=== PATIENT | female | born 1935 | race Two or more races ===

== ENCOUNTER 2023-03-24 14:57 | Inpatient (IN) | payer MEDICARE, OTHER ==
[~2023-03-24] VITALS: Ht 157.5 cm; Wt 46.4 kg
[2023-03-24] MEDS ORDERED: NITROGLYCERIN 0.4 MG SL TAB SL ONE (15:15)
[2023-03-24 16:05] LABS: Basophils # (auto) 0.1 10 ^3/uL (0-0.2); Basophils % (auto) 0.7 % (0.0-2.0); Eosinophils # (auto) 0.1 10 ^3/uL (0-0.8); Eosinophils % (auto) 0.6 % (0.0-7.0); Hemoglobin 11.9 g/dL (12.2-16.2); Lymphocytes # (auto) 1.1 10 ^3/uL (0.4-5.4); Lymphocytes % (auto) 10.5 % (10.0-50.0); Mean Corpuscular Hgb Conc. 34.1 g/dL (32.0-36.0); Mean Corpuscular Volume 90.9 fL (80.0-100.0); Monocytes # (auto) 1.2 10 ^3/uL (0-1.3); Monocytes % (auto) 11.9 % (0.0-12.0); Neutrophils # (auto) 7.7 10 ^3/uL (1.6-8.6); Neutrophils % (auto) 76.3 % (37.0-80.0); Red Blood Cells 3.85 10^6/uL (4.0-5.20); Red Cell Distribution Width 13.2 % (11.8-14.3); White Blood Cell 10.1 10^3/uL (4.4-10.8)
[2023-03-24 16:19] LABS: Alanine Aminotransferase 14 U/L (7-40); Albumin 4.4 g/dL (3.2-4.8); Alkaline Phosphatase 92 U/L (46-116); Anion Gap 6 (5-15); Aspartate Aminotransferase 30 U/L (13-40); BUN/Creatinine Ratio 11.4 (10.0-20.0); Blood Urea Nitrogen 10 mg/dL (9-23); Calcium 9.4 mg/dL (8.5-10.1); Carbon Dioxide 31 mmol/L (20-30); Chloride 94 mmol/L (98-107); Glucose 134 mg/dL (74-106); Potassium 3.4 mmol/L (3.5-5.1); Sodium 131 mmol/L (136-145)
[2023-03-24 16:20] LABS: Bilirubin, Total 0.7 mg/dL (0.2-1.0); Total Protein 7.2 g/dL (5.7-8.2)
[2023-03-24 20:15] VITALS: PULSE 80; RESP 16; O2SAT 96
[2023-03-24 21:58] LABS: Urine Epithelial Cast None Seen /hpf (<5)
[2023-03-24 22:11] LABS: Urine Bacteria FEW /hpf (None Seen); Urine Blood Negative /uL (Negative); Urine Clarity HAZY (Clear); Urine Color Yellow (Yellow); Urine Hyaline Cast FEW /lpf (0 - 2); Urine Mucus FEW (None Seen); Urine Protein, UAD TRACE (Negative); Urine Specific Gravity 1.014 (1.001-1.035); Urine Urobilinogen Normal (Negative); Urine WBC 90 /hpf (0 - 5); Urine pH 6.5 (5.0-8.0)
[2023-03-24] MEDS ORDERED: CEFTRIAXONE SODIUM 2 GM in D5W 5% 100 ML IV ONE (22:30)
[2023-03-24] MEDS ORDERED: cefTRIAXone 1GM/50ML D5W 50 ML IV ONE ×2 (23:15)
[2023-03-25] VITALS (8 sets, daily range): BP systolic 105–136; BP diastolic 52–79; PULSE 68–96; RESP 14–20; TEMP 97.5–98.4; O2SAT 92–98
[2023-03-25] MEDS ORDERED: IOHEXOL 350 MG/ML 100ML IJ ONE ×2 (00:25→10:16)
[2023-03-25] MEDS ORDERED: DOCUSATE SOD 100 MG CAP PO PRN (01:15)
[2023-03-25] MEDS ORDERED: HYDROcodone-ACET 5/325MG TAB PO PRN (01:15)
[2023-03-25] MEDS ORDERED: ONDANSETRON HCL 4 MG/2 ML VIAL IV PRN (01:15)
[2023-03-25] MEDS ORDERED: NITROGLYCERIN 0.4 MG SL TAB SL PRN (01:15)
[2023-03-25] MEDS ORDERED: ROSU1TAB12 PO (03:35)
[2023-03-25] MEDS ORDERED: APIX2.5T PO (03:35)
[2023-03-25] MEDS ORDERED: DONE1TAB88 PO (03:35)
[2023-03-25] MEDS ORDERED: PANT40T PO (03:35)
[2023-03-25] MEDS ORDERED: PANC3600 PO (03:35)
[2023-03-25] MEDS ORDERED: SERT25TA28 PO (03:35)
[2023-03-25] MEDS ORDERED: MEMA28CA15 PO (03:35)
[2023-03-25] MEDS ORDERED: AMLO1TAB23 PO (03:35)
[2023-03-25] MEDS ORDERED: ALPR0.5T8 PO (03:35)
[2023-03-25] MEDS ORDERED: DICL1GEL73 TOP (03:35)
[2023-03-25] MEDS ORDERED: GABA-1250 PO (03:35)
[2023-03-25] MEDS ORDERED: TEMA15CA2 PO (04:43)
[2023-03-25] MEDS: APIXABAN 2.5 MG TAB PO SCH ×2 (09:28→22:03)
[2023-03-25] MEDS: MORPHINE SULFATE INJ 2 MG/ml SYRG IV PRN ×2 (11:58→18:25)
[2023-03-25 12:29] LABS: Basophils # (auto) 0.1 10 ^3/uL (0-0.2); Basophils % (auto) 0.9 % (0.0-2.0); Eosinophils # (auto) 0.1 10 ^3/uL (0-0.8); Eosinophils % (auto) 0.8 % (0.0-7.0); Hematocrit 35.2 % (36.0-46.0); Hemoglobin 11.8 g/dL (12.2-16.2); Lymphocytes # (auto) 0.9 10 ^3/uL (0.4-5.4); Lymphocytes % (auto) 11.4 % (10.0-50.0); Mean Corpuscular Hemoglobin 30.7 pg (28.0-32.0); Mean Corpuscular Hgb Conc. 33.6 g/dL (32.0-36.0); Mean Corpuscular Volume 91.4 fL (80.0-100.0); Monocytes # (auto) 0.5 10 ^3/uL (0-1.3); Monocytes % (auto) 6.8 % (0.0-12.0); Neutrophils % (auto) 80.1 % (37.0-80.0); Red Blood Cells 3.85 10^6/uL (4.0-5.20); Red Cell Distribution Width 13.3 % (11.8-14.3); White Blood Cell 7.5 10^3/uL (4.4-10.8)
[2023-03-25] MEDS ORDERED: AMIODARONE HCL 200 MG TAB PO ONE (12:30)
[2023-03-25 12:53] LABS: Albumin 4.1 g/dL (3.2-4.8); Alkaline Phosphatase 89 U/L (46-116); Anion Gap 7 (5-15); Aspartate Aminotransferase 18 U/L (13-40); BUN/Creatinine Ratio 11.3 (10.0-20.0); Bilirubin, Total 0.6 mg/dL (0.2-1.0); Blood Urea Nitrogen 9 mg/dL (9-23); Calcium 9.3 mg/dL (8.5-10.1); Carbon Dioxide 29 mmol/L (20-30); Chloride 95 mmol/L (98-107); Cholesterol 136 mg/dL (< 200); Glucose 104 mg/dL (74-106); HDL Cholesterol 95 mg/dL (40-59); LDL Cholesterol 23 mg/dL (< 100); Potassium 3.7 mmol/L (3.5-5.1); Sodium 131 mmol/L (136-145); Total Protein 6.9 g/dL (5.7-8.2); Triglycerides 63 mg/dL (< 150)
[2023-03-25 12:54] LABS: Alanine Aminotransferase 9 U/L (7-40)
[2023-03-25 13:09] LABS: Magnesium 1.9 mg/dL (1.6-2.6)
[2023-03-25] MEDS: SODIUM CHLOR 0.9% PF (SALINE LOCK) 10ML VIAL/SYR IV SCH ×2 (14:00→22:19)
[2023-03-25] MEDS: cefTRIAXone 1GM/50ML D5W 50 ML IV SCH (22:19)
[2023-03-25] MEDS: AMIODARONE HCL 200 MG TAB PO SCH (22:33)
[2023-03-26] VITALS (8 sets, daily range): BP systolic 95–117; BP diastolic 50–73; PULSE 74–90; RESP 14–20; TEMP 97.5–98.7; O2SAT 93–97
[2023-03-26] MEDS: ACETAMINOPHEN 325 MG TAB PO PRN ×2 (01:27→20:37)
[2023-03-26] MEDS: SODIUM CHLOR 0.9% PF (SALINE LOCK) 10ML VIAL/SYR IV SCH ×2 (06:00→22:00)
[2023-03-26] MEDS: AMIODARONE HCL 200 MG TAB PO SCH ×2 (08:52→21:19)
[2023-03-26] MEDS: ISOSORBIDE MONONITRATE 20 MG TAB PO SCH (08:52)
[2023-03-26] MEDS: APIXABAN 2.5 MG TAB PO SCH ×2 (08:52→21:17)
[2023-03-26] MEDS: MORPHINE SULFATE INJ 2 MG/ml SYRG IV PRN (15:37)
[2023-03-26] MEDS: cefTRIAXone 1GM/50ML D5W 50 ML IV SCH (20:52)
[2023-03-27 04:11] LABS: Urine Epithelial Cast None Seen /hpf (<5)
[2023-03-27 04:51] LABS: Urine Bacteria NONE SEEN /hpf (None Seen); Urine Blood Negative /uL (Negative); Urine Clarity HAZY (Clear); Urine Color Yellow (Yellow); Urine Protein, UAD TRACE (Negative); Urine Specific Gravity 1.028 (1.001-1.035); Urine Urobilinogen Normal (Negative); Urine WBC 39 /hpf (0 - 5); Urine pH 5.5 (5.0-8.0)
[2023-03-27 05:00] VITALS: BP 110/62; PULSE 77; RESP 17; TEMP 98.2; O2SAT 96
[2023-03-27] MEDS: SODIUM CHLOR 0.9% PF (SALINE LOCK) 10ML VIAL/SYR IV SCH ×2 (06:23→15:53)
[2023-03-27 08:00] VITALS: PULSE 75
[2023-03-27 09:00] VITALS: BP 93/60; PULSE 80; RESP 16; TEMP 98.4; O2SAT 98
[2023-03-27] MEDS: APIXABAN 2.5 MG TAB PO SCH (09:56)
[2023-03-27] MEDS: AMIODARONE HCL 200 MG TAB PO SCH (09:57)
[2023-03-27] MEDS: ISOSORBIDE MONONITRATE 20 MG TAB PO SCH (10:00)
[2023-03-27 13:05] VITALS: BP 107/67; PULSE 71; RESP 16; TEMP 98.3; O2SAT 96
[2023-03-27] MEDS ORDERED: FAMO-12 PO (14:22)
[2023-03-27 16:42] VITALS: BP 130/67; PULSE 85; RESP 16; TEMP 98.1; O2SAT 98
== END 2023-03-27 19:22 | disposition home or self-care (01) | DRG 308 ==
LOC: EDBD 14:57 → EEVIPCON 14:57 → ER 14:57 → TELE 03-25 01:07 → TELE-EAST 03-25 01:07
PROVIDERS: ADMIT Internal Medicine; ATTEND Family Medicine
DX: I48.0 Paroxysmal atrial fibrillation (principal); G93.41 Metabolic encephalopathy; N39.0 Urinary tract infection, site not specified; E44.1 Mild protein-calorie malnutrition; Z68.1 Body mass index [BMI] 19.9 or less, adult; R07.89 Other chest pain; E78.5 Hyperlipidemia, unspecified; E87.6 Hypokalemia; D64.9 Anemia, unspecified; I10 Essential (primary) hypertension; F03.90 Unspecified dementia, unspecified severity, without behavioral disturbance, psychotic disturbance, mood disturbance, and anxiety; F41.9 Anxiety disorder, unspecified; R79.89 Other specified abnormal findings of blood chemistry; Z88.0 Allergy status to penicillin; Z79.01 Long term (current) use of anticoagulants; Z86.73 Personal history of transient ischemic attack (TIA), and cerebral infarction without residual deficits
CPT/HCPCS: 36415; 71045; 71275; 80053; 80061; 81001; 82962; 83036; 83605; 83735; 83880; 84443; 84484; 85025; 85379; 87040; 87086; 87088; 87186; 93005; 93306; 96365; G0378; J0696; J7060